=== PATIENT | female | born 1995 | race African-American/Black ===

== ENCOUNTER 2016-11-21 22:12 | Emergency (ER) | payer OTHER ==
[~2016-11-21] VITALS: Ht 167.6 cm; Wt 89.8 kg
[~2016-11-21 22:12] MED LIST: FLEXERIL PO; NAPROSYN500 MG PO
[2016-11-21 22:13] VITALS: BP 123/84
[2016-11-21] MEDS ORDERED: PREDNISONE 20 M20 MG PO (22:18)
[2016-11-21] MEDS ORDERED: MOBIC7.5 MG PO (22:30)
== END 2016-11-21 22:49 | disposition home or self-care (01) ==
LOC: ER 22:12
DX: J06.9 Acute upper respiratory infection, unspecified (principal); F10.99 Alcohol use, unspecified with unspecified alcohol-induced disorder